=== PATIENT | female | born 1995 | race Two or more races ===

== ENCOUNTER 2022-10-23 09:19 | Emergency (ER) | payer OTHER ==
[~2022-10-23] VITALS: Ht 165.1 cm; Wt 90.7 kg
[2022-10-23] MEDS ORDERED: SYNTHROID50 MCG PO (09:35)
== END 2022-10-23 10:56 | disposition home or self-care (01) ==
LOC: ER 09:19
DX: M54.6 Pain in thoracic spine (principal)

== ENCOUNTER → 2022-12-27 | Outpatient (CLI) | payer OTHER ==
[~2022-12-27] MED LIST: SYNTHROID50 MCG PO
== END | disposition home or self-care (01) ==
LOC: SONOGRAMA 07:42
PROVIDERS: ATTEND Student in an Organized Health Care Education/Training Program
DX: E04.1 Nontoxic single thyroid nodule (principal)

== ENCOUNTER 2023-01-21 07:21 | Outpatient (CLI) | payer OTHER | END 2023-01-21 10:30 | disposition home or self-care (01) | LOC: LAB 07:21 | PROVIDERS: ATTEND Obstetrics & Gynecology | DX: E03.8 Other specified hypothyroidism (principal); C73 Malignant neoplasm of thyroid gland; N39.0 Urinary tract infection, site not specified; E55.9 Vitamin D deficiency, unspecified; E03.9 Hypothyroidism, unspecified; R22.1 Localized swelling, mass and lump, neck ==

== ENCOUNTER 2024-01-27 09:43 | Outpatient (CLI) | payer OTHER | END 2024-01-27 09:45 | disposition home or self-care (01) | LOC: SONOGRAMA 09:43 | PROVIDERS: ATTEND Student in an Organized Health Care Education/Training Program | DX: C73 Malignant neoplasm of thyroid gland (principal) ==

== ENCOUNTER 2024-02-15 10:05 | Outpatient (CLI) | payer OTHER ==
[2024-02-15 11:22] LABS: T4 FREE 1.15 NG/ML (0.76-1.46); TSH 2.93 uIU/mL (0.358-3.74)
== END 2024-02-15 10:08 | disposition home or self-care (01) ==
LOC: LAB 10:05
PROVIDERS: ATTEND Student in an Organized Health Care Education/Training Program
DX: E03.8 Other specified hypothyroidism (principal); C73 Malignant neoplasm of thyroid gland

== ENCOUNTER → 2024-06-27 11:07 | Outpatient (CLI) | payer OTHER ==
[2024-06-27 11:53] LABS: HEMATOCRIT 41.3 % (36.0-45.00); HEMOGLOBIN 13.9 g/dL (12.0-15.00); MEAN CORPUSCULAR HGB CONC 33.8 g/dl (32.0-36.0); PLATELET COUNT 305 K/uL (150-450); RED BLOOD COUNT 4.64 M/uL (4.00-6.00)
[2024-06-27 12:19] LABS: T4 FREE 1.4 NG/ML (0.76-1.46); TSH 1.77 uIU/mL (0.358-3.74)
== END | disposition home or self-care (01) ==
LOC: LAB 11:07
PROVIDERS: ATTEND Student in an Organized Health Care Education/Training Program
DX: E03.8 Other specified hypothyroidism (principal); C73 Malignant neoplasm of thyroid gland

== ENCOUNTER 2024-09-10 19:48 | Emergency (ER) | payer OTHER ==
[~2024-09-10] VITALS: Ht 165.1 cm; Wt 94.8 kg
[2024-09-10 21:11] LABS: HEMOGLOBIN 13.9 g/dL (12.0-15.00); MEAN CELL VOLUME 87.7 fL (80.00-100.00); MEAN CORPUSCULAR HEMOGLOBIN 30.4 pg (27.00-32.0); MEAN CORPUSCULAR HGB CONC 34.6 g/dl (32.0-36.0); PLATELET COUNT 319 K/uL (150-450); RED BLOOD COUNT 4.56 M/uL (4.00-6.00); RED CELL DISTRIBUTION WIDTH 13.3 % (11.5-14.5)
[2024-09-10 21:32] LABS: URINE APPEARANCE Turbid; URINE BILIRRUBIN Small (NEGATIVE); URINE BLOOD Large; URINE COLOR Orange; URINE GLUCOSE Negative (NEGATIVE); URINE KETONE Negative (NEGATIVE); URINE LEUKOCYTE Small; URINE NITRATE Negative; URINE PROTEIN 30 (NEGATIVE)
[2024-09-10 21:36] LABS: URINE BACTERIA 165.2 uL (0.0-1933); URINE EPITHELIAL CELLS 2.5 uL (0.0-38.8); URINE WBC 20.8 uL (0.0-23.2)
[2024-09-10 21:45] LABS: URINE RBC > 10558.9 uL (0.0-20.8)
[2024-09-10 21:46] LABS: INR 1.01; PARTIAL THROMBOPLASTIN TIME 27.5 SECONDS (22.0-34.0)
[2024-09-10 21:54] LABS: ALBUMIN 3.6 gm/dL (3.4-5.0); ALKALINE PHOSPHATASE 74 U/L (50-136); ALT/SGPT 19 U/L (12-78); ANION GAP 11 (10.0-20.0); AST/SGOT 17 U/L (15-37); BILIRUBIN TOTAL 0.34 mg/dL (0.3-1.2); BLOOD UREA NITROGEN 26 mg/dL (7-18); BUN CREA RATIO 28 (7.0-25.0); CALCIUM 8.9 mg/dL (8.5-10.1); CARBON DIOXIDE 27 mEq/L (21-32); CHLORIDE 109 mmol/L (98-107); CREATININE SERUM 0.93 mg/dL (0.55-1.02); GFR 70.32; GLOBULINA 3.8 G/DL (2.4-3.5); GLUCOSE FASTING 116 mg/dL (65-100); OSMOLALITY SERUM 291 MOSM/KG (275-295); POTASSIUM 3.91 mEq/L (3.5-5.1); SODIUM 143 mmol/L (136-145); TOTAL PROTEIN 7.4 gm/dL (6.4-8.2)
[2024-09-10 21:58] LABS: HCG QUANTITATIVE < 1 mUI/mL (1-3)
== END 2024-09-10 22:44 | disposition home or self-care (01) ==
LOC: ER 20:23
PROVIDERS: General Practice
DX: N93.9 Abnormal uterine and vaginal bleeding, unspecified (principal); E03.8 Other specified hypothyroidism

== ENCOUNTER → 2024-12-29 09:42 | Outpatient (CLI) | payer OTHER ==
[2024-12-29 10:32] LABS: URINE APPEARANCE Clear; URINE BILIRRUBIN Small (NEGATIVE); URINE BLOOD Negative; URINE COLOR Dark Yellow; URINE GLUCOSE Negative (NEGATIVE); URINE KETONE Trace (NEGATIVE); URINE LEUKOCYTE Negative; URINE NITRATE Negative; URINE PROTEIN Negative (NEGATIVE); URINE UROBILINOGEN 0.2 E.U./dl
[2024-12-29 10:34] LABS: BASO % 0.7 % (0.1-1.2); EOS # 0.11 (0.04-0.54); EOS % 1.9 % (0.7-7.0); LYMPH # 1.62 (1.18-3.74); LYMPH % 28.6 % (19.3-53.1); MEAN PLATELET VOLUME 9.50 fl (9.4-12.4); MONO # 0.28 (0.24-0.82); MONO % 4.9 % (4.7-12.5); NEUT # 3.61 (1.56-6.13); NEUT % 63.7 % (34.0-71.1); RED CELL DISTRIBUTION WIDTH 12.8 % (11.6-14.4)
[2024-12-29 10:37] LABS: URINE BACTERIA 1409.9 uL (0.0-1933); URINE EPITHELIAL CELLS 23.9 uL (0.0-38.8); URINE RBC 8.3 uL (0.0-20.8); URINE WBC 10.2 uL (0.0-23.2)
[2024-12-29 10:46] LABS: URINE CAST 0.14 uL (0.0-1.40)
[2024-12-29 11:23] LABS: ALT/SGPT 13.0 U/L (12-78); AST/SGOT 13.0 U/L (15-37); BILIRUBIN TOTAL 0.5 mg/dL (0.3-1.2); BUN CREA RATIO 11.0 (7.0-25.0); CHOL HDL RATIO 3.0 (0-5.0); CREATININE SERUM 1.01 mg/dL (0.55-1.02); GFR 63.93; GLOBULINA 4.0 G/DL (2.4-3.5); GLUCOSE FASTING 80.0 mg/dL (65-100); HDL 52.0 mg/dl (40-60); LDL 83.0 mg/dl (0-130); OSMOLALITY SERUM 280.0 MOSM/KG (275-295); VLDL 20.0 (0-39)
[2024-12-29 11:24] LABS: TSH 4.95 uIU/mL (0.358-3.74)
[2024-12-30 09:11] LABS: hav igm Negative (Negative); hep b c Negative (Negative); hep b s ag Negative (Negative)
[2024-12-30 23:07] LABS: chla t Negative (Negative); neiss Negative (Negative)
== END | disposition home or self-care (01) ==
LOC: LAB 09:42
DX: D64.9 Anemia, unspecified (principal); I10 Essential (primary) hypertension; E22.9 Hyperfunction of pituitary gland, unspecified; E78.5 Hyperlipidemia, unspecified; R74.01 Elevation of levels of liver transaminase levels; A64 Unspecified sexually transmitted disease; Z11.3 Encounter for screening for infections with a predominantly sexual mode of transmission; Z11.4 Encounter for screening for human immunodeficiency virus [HIV]; Z12.11 Encounter for screening for malignant neoplasm of colon; N39.0 Urinary tract infection, site not specified

== ENCOUNTER 2025-01-15 13:33 | Outpatient (CLI) | payer OTHER | END 2025-01-15 13:35 | disposition home or self-care (01) | LOC: SONOGRAMA 13:33 | PROVIDERS: ATTEND Student in an Organized Health Care Education/Training Program | DX: C73 Malignant neoplasm of thyroid gland (principal) ==

== ENCOUNTER 2025-01-18 09:05 | Emergency (ER) | payer OTHER ==
[~2025-01-18] VITALS: Ht 165.1 cm; Wt 92.5 kg
[2025-01-18 11:13] LABS: BASO % 0.7 % (0.1-1.2); EOS # 0.18 (0.04-0.54); EOS % 4.1 % (0.7-7.0); LYMPH # 1.20 (1.18-3.74); LYMPH % 27.1 % (19.3-53.1); MEAN PLATELET VOLUME 10.10 fl (9.4-12.4); MONO # 0.52 (0.24-0.82); MONO % 11.7 % (4.7-12.5); NEUT # 2.48 (1.56-6.13); NEUT % 55.9 % (34.0-71.1); RED CELL DISTRIBUTION WIDTH 13.3 % (11.6-14.4)
[2025-01-18 11:17] LABS: COVID-19 AG NEGATIVE (NEGATIVE)
== END 2025-01-18 12:02 ==
LOC: ER 09:05
PROVIDERS: General Practice
DX: B34.9 Viral infection, unspecified (principal); E03.8 Other specified hypothyroidism; Z20.822 Contact with and (suspected) exposure to COVID-19

== ENCOUNTER 2025-01-20 12:41 | Emergency (ER) | payer OTHER ==
[~2025-01-20] VITALS: Ht 165.1 cm; Wt 91.6 kg
[2025-01-20 12:47] VITALS: BP 120/79; O2SAT 98
[2025-01-20] MEDS ORDERED: FAMOtidine 10 MG/ML (4ML VIAL) IV ONE (13:15)
[2025-01-20] MEDS ORDERED: KETOROLAC TROMETHAMINE 30 MG VIAL IV ONE (13:15)
[2025-01-20] MEDS ORDERED: PIPERACILLIN/TAZOBACTAM SODIUM 3.375 GM VIAL IV ONE ×2 (13:15→15:24)
[2025-01-20] MEDS ORDERED: 0.9 % SODIUM CHLORIDE 1,000 ML IV ONE (13:30)
[2025-01-20] MEDS ORDERED: KETOROLAC TROMETHAMINE 30 MG VIAL ONE (15:24)
[2025-01-20] MEDS ORDERED: FAMOTIDINE/PF 20 MG/2 ML VIAL ONE (15:25)
[2025-01-20 18:14] LABS: BASO % 0.5 % (0.1-1.2); EOS # 0.03 (0.04-0.54); EOS % 0.4 % (0.7-7.0); LYMPH # 0.90 (1.18-3.74); LYMPH % 11.9 % (19.3-53.1); MEAN PLATELET VOLUME 9.40 fl (9.4-12.4); MONO # 0.33 (0.24-0.82); MONO % 4.4 % (4.7-12.5); NEUT # 6.27 (1.56-6.13); NEUT % 82.7 % (34.0-71.1); RED CELL DISTRIBUTION WIDTH 13.2 % (11.6-14.4)
[2025-01-20 18:34] LABS: INR 1.03
[2025-01-20 18:50] LABS: ALT/SGPT 16 U/L (12-78); AST/SGOT 17 U/L (15-37); BILIRUBIN TOTAL 0.27 mg/dL (0.3-1.2); BILIRUBIN,CONJUGATED 0.15 mg/dL (0.0-0.2); BUN CREA RATIO 19 (7.0-25.0); CREATININE SERUM 0.86 mg/dL (0.55-1.02); GFR 76.96; GLOBULINA 4.5 G/DL (2.4-3.5); GLUCOSE FASTING 88 mg/dL (65-100); OSMOLALITY SERUM 278 MOSM/KG (275-295)
[2025-01-20] MEDS ORDERED: LEVSIN/SL0.125 MG SL (20:15)
[2025-01-20] MEDS ORDERED: INTESTINEX680 M1 PO (20:15)
[2025-01-20] MEDS ORDERED: PEPCID AC20 MG PO (20:15)
[2025-01-20 21:25] LABS: HCG QUANTITATIVE < 1 mUI/mL (1-3)
== END 2025-01-20 21:38 | disposition home or self-care (01) ==
LOC: ER 12:41
PROVIDERS: General Practice
DX: R10.11 Right upper quadrant pain (principal)

== ENCOUNTER → 2025-01-28 09:13 | Outpatient (CLI) | payer OTHER ==
[~2025-01-28 09:13] MED LIST changes: +INTESTINEX680 M1 PO; +LEVSIN/SL0.125 MG SL; +PEPCID AC20 MG PO
[2025-01-28 10:56] LABS: ALT/SGPT 19.0 U/L (12-78); AST/SGOT 15.0 U/L (15-37); BILIRUBIN TOTAL 0.44 mg/dL (0.3-1.2); BUN CREA RATIO 14.0 (7.0-25.0); CREATININE SERUM 0.94 mg/dL (0.55-1.02); GFR 69.45; GLOBULINA 3.9 G/DL (2.4-3.5); GLUCOSE FASTING 72.0 mg/dL (65-100); OSMOLALITY SERUM 280.0 MOSM/KG (275-295); T4 FREE 1.08 NG/ML (0.76-1.46); TSH 3.72 uIU/mL (0.358-3.74)
== END | disposition home or self-care (01) ==
LOC: LAB 09:13
DX: E03.8 Other specified hypothyroidism (principal); C73 Malignant neoplasm of thyroid gland; R10.13 Epigastric pain; R05.1 Acute cough